=== PATIENT | female | born 1970 | race Caucasian/White ===

== ENCOUNTER 2018-05-03 06:06 | Day surgery (SDC) | payer OTHER ==
[~2018-05-03] VITALS: Ht 154.9 cm; Wt 93.9 kg
--- NOTE | ~2018-05-03 | O ---
[facility] [place] [address] OPERATIVE REPORT Name: ROLANDO GARCIA Room #: DEP [facility]..#: [id number] Admission: 05/03/18 Attend Phys: Armaan Slater MD, F Discharge: 05/04/18 Date of : 72 Report #: [id number] THIS REPORT FOR: //name// CC: Zena Slater DATE OF SERVICE: 05/03/2018 SURGEON: Armaan Slater MD SOUND ENGINEERING TECHNICIAN: Yosvany Pizarro MD PREOPERATIVE DIAGNOSES: 1. Morbid obesity. 2. Obstructive sleep apnea. 3. Gastroesophageal reflux disease. 4. Depression. 5. Migraine headaches. POSTOPERATIVE DIAGNOSES: 1. Morbid obesity. 2. Obstructive sleep apnea. 3. Gastroesophageal reflux disease. 4. Depression. 5. Migraine headaches. PROCEDURE: Laparoscopic sleeve gastrectomy with EGD. ANESTHESIA: General endotracheal anesthesia and local anesthetic. ESTIMATED BLOOD LOSS: 10 mL. SPECIMEN: Lateral stomach. COMPLICATIONS: None appreciated. INDICATIONS FOR PROCEDURE: This is a 47-year-old female patient of Dr. Zena Chapa who stands 5 feet 1 inch and weighed 211 pounds at her last office visit with a BMI of 40. The patient has been unable to lose a significant amount of weight with diet and exercise changes. 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 She has tried numerous weight loss programs and plans with limited weight loss success including specialized diets, exercises and medications. The most weight she has lost with any single modality is 30-35 pounds all taking phentermine. Any amount of weight she has lost, she has quickly regained plus additional weight after stopping the modality. She has weight associated comorbid conditions as [facility] [address] [place] [address] OPERATIVE REPORT Name: ROLANDO GARCIA Room #: DEP [facility]..#: [id number] Admission: 05/03/18 Attend Phys: Armaan Slater MD, F Discharge: 05/04/18 Date of : 72 Report #: [id number] listed above. She has been cleared from a multidisciplinary standpoint for bariatric surgery. She presents today for laparoscopic sleeve gastrectomy with EGD. OPERATIVE FINDINGS: On EGD, the patient's GE junction and Z-line were measured at 37 cm from the teeth with no evidence for hiatal hernia. The esophageal mucosa was otherwise normal. The stomach and duodenum to the third portion showed no polyps, masses, diverticula, or ulcers. On retroflexion of the scope within the antrum of the stomach, there was no evidence for hiatal hernia. Laparoscopically, the patient had a mildly enlarged liver and an enlarged stomach as expected. No other significant pathology was seen. The gastric sleeve staple line was located 4 cm lateral/proximal to the pylorus, 3 cm lateral to the incisura of the stomach, and 1 cm lateral to the GE junction. Immediately after applying 10 mL of Tisseel to the entire gastric sleeve staple line, a leak test was performed, whereby carbon dioxide was insufflated into the sleeve/remaining stomach and no air bubbles were seen forming within the Tisseel. After removal of the stomach from the abdominal cavity, the excised stomach held 750 mL of fluid. The patient tolerated the procedure well. At the conclusion of the operation, sponge, needle, and instrument counts were correct. DESCRIPTION OF PROCEDURE IN DETAIL: After the benefits and risks of the procedure were explained to the patient which include but are not limited to risks of bleeding, infection, postoperative pain, postoperative expectations and risks of DVT and pulmonary embolus, informed consent was obtained. The patient was identified in the preoperative holding area. The patient was given IV antibiotics as documented in the chart in line with SCIP protocol. The patient was then taken to the operating room and was placed in the supine position. The patient was given IV sedation and was intubated without incident. SCDs were placed on the patient's bilateral lower extremities prior to induction of anesthesia. The patient had been placed in the modified low lying dorsal lithotomy position in stirrups on the beanbag. The beanbag and the patient were taped to the bed to secure the patient. A time-out was then performed to correctly identify the patient and procedure. An orogastric tube was placed by anesthesia. A bite block was placed and the fiberoptic EGD scope was passed into the patient's oropharynx, down the esophagus, into the stomach, and into the third portion of the duodenum. Findings are as noted above. The scope was slowly withdrawn into the antrum and the scope was retroflexed. The hiatus was visualized. The scope was then straightened and the end of the gastroscope was placed at the pylorus. The stomach was decompressed with the scope. The patient's abdomen was then prepped and draped in the standard sterile fashion with surgical prep. Local anesthetic was infiltrated into the skin and subcutaneous tissue in the left supraumbilical area where a sharp #15-blade [address] [address] OPERATIVE REPORT Name: ROLANDO GARCIA Room #: DEP [facility]#: [id number] Admission: 05/03/18 Attend Phys: Armaan Slater MD, F Discharge: 05/04/18 Date of : 72 Report #: [id number] scalpel was used to make a 5-mm incision. The 5-mm Visiport was placed intraperitoneally with the 5-mm 0-degree angled laparoscope. Pneumoperitoneum was then achieved with insufflation of carbon dioxide to 15 mmHg. A 5-mm 30-degree angled laparoscope was then inserted. The 15-mm port was placed in the right supraumbilical area after local anesthetic was infiltrated into the skin and subcutaneous tissue and an appropriately sized incision was made. Two additional 5 mm ports were placed in the left abdomen after local anesthetic was infiltrated and incisions were made. All ports were placed under direct visualization. The patient was then placed in reverse Trendelenburg position. Local anesthetic was infiltrated into the skin and subcutaneous tissue in the subxiphoid area and a 5-mm incision was made through which a 5-mm obturator was passed into the abdominal cavity through the fascia to create a passageway for the Kandace liver retractor. The retractor was placed to retract the liver anteriorly. The retractor was held in place with the Iron Ammonia Nitrate Operator apparatus. All abdominal adhesions were then taken down with blunt dissection, sharp dissection and judicious use of the ultrasonic dissector. The gastrosplenic ligament and short gastric vessels were then divided using the ultrasonic dissector with appropriate traction. Bleeding points were made hemostatic with the ultrasonic dissector. Dissection was carried proximally up to the left cassandra of the diaphragm. The distal end point of dissection was then measured at 4 cm proximal to the pylorus. The short gastric vessels and gastrocolic ligaments were dissected to that level. The stomach was then rotated medially to visualize any posterior attachments/adhesions to the stomach. The adhesions were dissected with a combination of sharp dissection and use of the ultrasonic dissector. The endoscope was then slightly withdrawn to place it along the lesser curvature of the stomach. Suction was applied to the orogastric tube which was then removed, leaving the endoscope in place as a 34-Azeri bougie. The gastric sleeve was then created. Two black loads of the powered endoscopic BILL stapler buttressed with Joanne-Strips were used to staple and divide the stomach 4 cm proximal to the pylorus, starting distally and working proximally. Additional green loads buttressed with Joanne-strips were used to staple off the remainder of the stomach using the endoscope as the bougie. Care was taken to ensure that greater than 3 cm of space was present between the incisura and the staple line. The stomach was fully transected and placed in the right upper quadrant of the abdomen for later removal. The staple line of the sleeve was then clipped at the distalmost aspect with Hemoclips to provide hemostasis. 10 mL of Tisseel was applied to the entire length of the staple line with the [employer] aerosolizer to fully ensure hemostasis and perform the leak test, which was performed next. Immediately after applying Tisseel to the staple line, the sleeve was insufflated with the endoscope, which was slowly withdrawn. No air bubbles were seen forming in the Tisseel laparoscopically. Endoluminally, no bleeding [facility] [address] [place] [address] OPERATIVE REPORT Name: ROLANDO GARCIA Room #: DEP [facility] Sera#: [id number] Admission: 05/03/18 Attend Phys: Armaan Slater MD, F Discharge: 05/04/18 Date of : 72 Report #: [id number] was seen. The stomach was fully decompressed and the scope was slowly withdrawn. The Kandace liver retractor was then loosened from the Iron Ammonia Nitrate Operator apparatus and it was removed without difficulty. The stomach was then removed from the patient's body through the 15-mm port under direct visualization. A small amount stretching of the fascia was required to create an opening large enough for removal of the stomach. After its removal, the 15-mm port site fascial opening was closed with an 0-PDS suture using the Arvind-Shabbir laparoscopic fascial closure device. All ports were removed after the abdominal cavity was desufflated. The fascial suture was tied. Interrupted subcuticular 4-0 Monocryl sutures and Dermabond were used to close all skin incisions. The patient tolerated the procedure well. The patient was awakened, extubated and taken to the recovery room in stable condition with no apparent intraoperative complications. <ELECTRONICALLY SIGNED> By: Armaan Slater MD, FACS 05/05/18 [id number] Armaan Slater MD, FACS /nt
[~2018-05-03 06:06] MED LIST: PROAIR HFA8.5 GM INH
[2018-05-03 08:31] VITALS: BP 130/76
[2018-05-03 17:08] VITALS: BP 146/87
[2018-05-03 20:00] VITALS: BP 127/76
[2018-05-04 04:24] LABS: ABSOLUTE NEUTROPHILS 9.8 thou/uL (1.4-8.2); BASOPHILS 0.1 % (0.0-2.0); HEMATOCRIT 38.1 % (37.0-47.0); LYMPHOCYTES 12.6 % (24.0-44.0); MCH 31.6 pg (26.0-34.0); MCV 92.9 fL (80.0-100.0); MONOCYTES 6.1 % (1.0-8.0); PLATELET COUNT 251 thou/uL (150-400); POLYS 81.2 % (36.0-66.0); RDW 12.2 % (10.5-14.5)
[2018-05-04 04:30] VITALS: BP 121/68
[2018-05-04 04:33] LABS: CALCIUM 8.3 mg/dL (8.5-10.1); CREATININE 0.7 mg/dL (0.6-1.0); POTASSIUM 3.7 mmol/L (3.5-5.1)
[2018-05-04 08:00] VITALS: BP 132/75
[2018-05-04 13:06] VITALS: BP 132/75
== END 2018-05-04 13:48 | disposition home or self-care (01) ==
LOC: OR 06:06 → TBA 06:07 → OR 09:17 → 4E 12:18 → OR 13:13
PROVIDERS: Surgery
DX: E66.01 Morbid (severe) obesity due to excess calories (principal); K21.9 Gastro-esophageal reflux disease without esophagitis; G47.33 Obstructive sleep apnea (adult) (pediatric); G43.909 Migraine, unspecified, not intractable, without status migrainosus; J45.909 Unspecified asthma, uncomplicated; F32.9 Major depressive disorder, single episode, unspecified; Z68.41 Body mass index [BMI] 40.0-44.9, adult; Z98.890 Other specified postprocedural states; Z88.0 Allergy status to penicillin
CPT/HCPCS: 10783; 50010; 50101; 50222; 50249; 50386; 50555; 50739; 50740; 50962; 51437; 52182; 52265; 53307; 53311; 54022; 54118; 55245; 56462; 56525; 56526; 57092; 62110; 62900; 70005

== ENCOUNTER → 2018-07-04 | Outpatient (CLI) | payer OTHER ==
[~2018-07-04] MED LIST changes: +HYDROCODONE-ACET5 ML PO; +MY FAVORITE MU237 ML; +ZOFRAN ODT4 MG DISSOLVE
[2018-07-04 08:25] VITALS: BP 108/73
[2018-07-04 11:30] VITALS: BP 108/73
== END ==
LOC: OPONC 06:55 → RAD 16:15
DX: E66.01 Morbid (severe) obesity due to excess calories (principal); Z68.41 Body mass index [BMI] 40.0-44.9, adult; K21.9 Gastro-esophageal reflux disease without esophagitis; F32.9 Major depressive disorder, single episode, unspecified
CPT/HCPCS: 95000; 95001